=== PATIENT | female | born 1940 | race Caucasian/White ===

== ENCOUNTER 2019-02-02 12:04 | Outpatient (REF) | payer MEDICARE, SELFPAY ==
[2019-02-02 14:01] LABS: ALT 26 U/L (12-78); AST 18 U/L (15-37); Albumin 3.6 g/dL (3.4-5.0); Alkaline Phosphatase 57 U/L (46-116); Anion Gap 9.4 mmol/L (3-11); BUN 18 mg/dL (7-18); Bilirubin, Total 0.5 mg/dL (0.2-1.0); CO2 27.6 mmol/L (21.0-32.0); CREATININE 0.87 mg/dL (0.55-1.02); Calcium 8.9 mg/dL (8.5-10.1); Chloride 104 mmol/L (98-107); Glucose 106 mg/dL (70-100); Sodium 141 mmol/L (136-145); Total Protein 7.1 g/dL (6.4-8.2)
== END 2019-02-02 12:24 ==
LOC: NCHCN 12:04
PROVIDERS: PCP Internal Medicine; Visit Provider Nurse Practitioner Family
DX: D12.6 Benign neoplasm of colon, unspecified (principal); I10 Essential (primary) hypertension; E66.9 Obesity, unspecified
CPT/HCPCS: 80053

== ENCOUNTER 2020-01-31 15:04 | Outpatient (REF) | payer MEDICARE, SELFPAY ==
[2020-01-31 20:17] LABS: ALT 28 U/L (14-59); AST 18 U/L (15-37); Albumin 3.7 g/dL (3.4-5.0); Alkaline Phosphatase 50 U/L (46-116); Anion Gap 6.5 mmol/L (3-11); BUN 20 mg/dL (7-18); Bilirubin, Total 0.7 mg/dL (0.2-1.0); CO2 33.5 mmol/L (21.0-32.0); CREATININE 0.93 mg/dL (0.55-1.02); Calcium 9.4 mg/dL (8.5-10.1); Chloride 105 mmol/L (98-107); Estimated GFR 58.16 (mL/min/1.73m2); Glucose 162 mg/dL (74-106); Sodium 145 mmol/L (136-145); Total Protein 7.2 g/dL (6.4-8.2)
[2020-01-31 20:39] LABS: Hemoglobin A1C 6.1 % (3.8-5.6)
== END 2020-01-31 15:24 ==
LOC: NCHCN 15:04
PROVIDERS: PCP Internal Medicine; Visit Provider Nurse Practitioner Family
DX: I10 Essential (primary) hypertension (principal); E78.5 Hyperlipidemia, unspecified; R73.09 Other abnormal glucose
CPT/HCPCS: 80053; 83036

== ENCOUNTER 2020-11-14 20:43 | Outpatient (REF) | payer MEDICARE, SELFPAY ==
[2020-11-14 19:38] LABS: ALT 27 U/L (14-59); AST 18 U/L (15-37); Albumin 3.6 g/dL (3.4-5.0); Alkaline Phosphatase 54 U/L (46-116); Anion Gap 5.1 mmol/L (3-11); BUN 22 mg/dL (7-18); Bilirubin, Total 0.5 mg/dL (0.2-1.0); CO2 29.9 mmol/L (21.0-32.0); CREATININE 1.03 mg/dL (0.55-1.02); Calcium 8.9 mg/dL (8.5-10.1); Chloride 105 mmol/L (98-107); Estimated GFR 51.69 (mL/min/1.73m2); Glucose 130 mg/dL (74-106); Potassium 3.7 mmol/L (3.5-5.1); Sodium 140 mmol/L (136-145); Total Protein 6.8 g/dL (6.4-8.2)
[2020-11-14 20:00] LABS: Microalb ug/mg Crea 17.1 ug/mg Cr
[2020-11-18 10:57] LABS: Hepatitis C Ab w Rflx HCV PCR Negative (Negative)
== END 2020-11-14 21:03 ==
LOC: NCHCN 20:43
PROVIDERS: PCP Internal Medicine; Visit Provider Nurse Practitioner Family
DX: I10 Essential (primary) hypertension (principal); R73.03 Prediabetes; E78.5 Hyperlipidemia, unspecified; E66.9 Obesity, unspecified; Z11.59 Encounter for screening for other viral diseases
CPT/HCPCS: 80053; 86803; 82043; 82570

== ENCOUNTER 2020-11-28 23:54 | Outpatient (REF) | payer MEDICARE, SELFPAY ==
[2020-11-28 16:05] LABS: BUN 18 mg/dL (7-18); CREATININE 0.8 mg/dL (0.55-1.02); Calcium 9.2 mg/dL (8.5-10.1); Chloride 105 mmol/L (98-107); Glucose 108 mg/dL (74-106); Sodium 143 mmol/L (136-145)
== END 2020-11-28 23:55 | disposition home or self-care (01) ==
LOC: NCHCN 23:54
PROVIDERS: PCP Internal Medicine; Visit Provider Nurse Practitioner Family
DX: I10 Essential (primary) hypertension (principal); R80.9 Proteinuria, unspecified
CPT/HCPCS: 80048

== ENCOUNTER 2021-11-13 15:44 | Outpatient (REF) | payer MEDICARE, SELFPAY ==
[2021-11-13 21:11] LABS: ALT 26 U/L (14-59); AST 16 U/L (15-37); Albumin 3.9 g/dL (3.4-5.0); Alkaline Phosphatase 55 U/L (46-116); Anion Gap 5.9 mmol/L (3-11); BUN 18 mg/dL (7-18); Bilirubin, Total 0.4 mg/dL (0.2-1.0); CO2 31.1 mmol/L (21.0-32.0); CREATININE 0.8 mg/dL (0.55-1.02); Calcium 9.2 mg/dL (8.5-10.1); Chloride 103 mmol/L (98-107); Glucose 98 mg/dL (74-106); Potassium 3.7 mmol/L (3.5-5.1); Sodium 140 mmol/L (136-145); Total Protein 7.3 g/dL (6.4-8.2)
== END 2021-11-13 15:45 | disposition home or self-care (01) ==
LOC: NCHCN 15:44
PROVIDERS: PCP Internal Medicine; Visit Provider Nurse Practitioner Family
DX: I10 Essential (primary) hypertension (principal); E78.5 Hyperlipidemia, unspecified; R73.03 Prediabetes; R31.21 Asymptomatic microscopic hematuria; R80.9 Proteinuria, unspecified; E66.9 Obesity, unspecified
CPT/HCPCS: 80053

== ENCOUNTER 2022-11-12 09:41 | Outpatient (REF) | payer MEDICARE, SELFPAY ==
[2022-11-12 15:06] LABS: Anion Gap 8.1 mmol/L (3-11); BUN 17 mg/dL (7-18); CO2 28.9 mmol/L (21.0-32.0); Calcium 9.2 mg/dL (8.5-10.1); Chloride 104 mmol/L (98-107); Glucose 172 mg/dL (74-106); Potassium 3.9 mmol/L (3.5-5.1); Sodium 141 mmol/L (136-145)
== END 2022-11-12 09:42 | disposition home or self-care (01) ==
LOC: NCHCN 09:41
PROVIDERS: PCP Internal Medicine; Visit Provider Nurse Practitioner Family
DX: I10 Essential (primary) hypertension (principal); R73.03 Prediabetes; E78.5 Hyperlipidemia, unspecified; E66.8 Other obesity
CPT/HCPCS: 80048

== ENCOUNTER 2023-02-25 09:21 | Outpatient (REF) | payer MEDICARE, SELFPAY | END 2023-02-25 09:22 | disposition home or self-care (01) | LOC: NCHCN 09:21 | PROVIDERS: PCP Internal Medicine; Visit Provider Nurse Practitioner Family | DX: R31.21 Asymptomatic microscopic hematuria (principal); R82.998 Other abnormal findings in urine | CPT/HCPCS: 87077; 87086; 87186 ==

== ENCOUNTER 2023-09-09 14:22 | Outpatient (REF) | payer MEDICARE, SELFPAY | END 2023-09-09 14:23 | disposition home or self-care (01) | LOC: NCHCN 14:22 | PROVIDERS: PCP Nurse Practitioner Family; Visit Provider Nurse Practitioner Family | DX: L29.3 Anogenital pruritus, unspecified (principal); R82.998 Other abnormal findings in urine | CPT/HCPCS: 87086 ==

== ENCOUNTER 2023-11-18 11:19 | Outpatient (REF) | payer MEDICARE, SELFPAY ==
[2023-11-18 14:42] LABS: Bilirubin Negative (Negative); Blood Negative (Negative); Clarity Sl Cloudy (Clear); Glucose Negative (Negative); Ketones Negative (Negative); Leukocyte Esterase Moderate (Negative); Nitrite Negative (Negative); Urobilinogen 0.2 mg/dL (Up to 0.2); pH 6.5 (5-8)
[2023-11-18 14:51] LABS: Bacteria Few HPF (Negative); C & S Indicated? Yes; Casts Negative LPF (Negative); Crystals Negative HPF (Negative); Epithelial Cells Few HPF (Negative); Mucus Negative (Negative); RBC Negative HPF (0-2)
[2023-11-18 15:20] LABS: Anion Gap 6.4 mmol/L (3-11); BUN 15 mg/dL (7-18); CO2 31.6 mmol/L (21.0-32.0); Calcium 9.4 mg/dL (8.5-10.1); Chloride 105 mmol/L (98-107); Estimated GFR 56.25 (mL/min/1.73m2); Glucose 119 mg/dL (74-106); Potassium 4.4 mmol/L (3.5-5.1); Sodium 143 mmol/L (136-145)
== END 2023-11-18 11:20 | disposition home or self-care (01) ==
LOC: NCHCN 11:19
PROVIDERS: PCP Internal Medicine; Visit Provider Nurse Practitioner Family
DX: R31.21 Asymptomatic microscopic hematuria (principal); I10 Essential (primary) hypertension
CPT/HCPCS: 80048; 81003; 81015; 87086

== ENCOUNTER 2024-11-23 13:57 | Outpatient (REF) | payer MEDICARE, SELFPAY ==
[2024-11-23 15:04] LABS: Bilirubin Negative (Negative); Blood Trace-intact (Negative); Clarity Sl Cloudy (Clear); Glucose Negative (Negative); Ketones Trace mg/dL (Negative); Leukocyte Esterase Moderate (Negative); Nitrite Negative (Negative); Specific Gravity 1.015 (1.005-1.025); Urobilinogen 0.2 mg/dL (Up to 0.2); pH 7.5 (5-8)
[2024-11-23 15:23] LABS: Bacteria Many HPF (Negative); Casts Negative LPF (Negative); Crystals Negative HPF (Negative); Epithelial Cells Few HPF (Negative); Mucus Negative (Negative); Other Cells Negative (Negative); WBC 20-50 HPF (0-5)
[2024-11-23 15:24] LABS: C & S Indicated? Yes
[2024-11-23 15:29] LABS: Anion Gap 7.4 mmol/L (3-11); BUN 15 mg/dL (7-18); CO2 32.6 mmol/L (21.0-32.0); CREATININE 0.9 mg/dL (0.55-1.02); Calcium 9.7 mg/dL (8.5-10.1); Chloride 105 mmol/L (98-107); Estimated GFR 63.43 (mL/min/1.73m2); Glucose 115 mg/dL (74-106); Potassium 4.1 mmol/L (3.5-5.1); Sodium 145 mmol/L (136-145)
[2024-11-23 15:55] LABS: Hemoglobin A1C 5.8 % (<5.7)
== END 2024-11-23 13:58 | disposition home or self-care (01) ==
LOC: NCHCN 13:57
PROVIDERS: PCP Internal Medicine; Visit Provider Nurse Practitioner Family
DX: R73.03 Prediabetes (principal)
CPT/HCPCS: 80048; 81003; 81015; 83036; 87086